=== PATIENT | male | born 1950 | race Caucasian/White ===

== ENCOUNTER → 2021-04-27 | Outpatient (CLI) | payer MEDICARE, OTHER, SELFPAY | END | disposition home or self-care (01) | PROVIDERS: Visit Provider Urology | DX: R31.21 Asymptomatic microscopic hematuria (principal) | CPT/HCPCS: 87077; 87086; 87088; 87186 ==

== ENCOUNTER 2021-05-22 09:42 | Day surgery (SDC) | payer MEDICARE, OTHER, SELFPAY ==
--- NOTE | 2021-05-20 15:57 | EKG12_ITS ---
Test Reason : PRE-OP Blood Pressure : / mmHG Vent. Rate : 061 BPM Atrial Rate : 061 BPM P-R Int : 172 ms QRS Dur : 098 ms QT Int : 440 ms P-R-T Axes : 019 -14 018 degrees QTc Int : 442 ms Normal sinus rhythm Normal ECG Confirmed by MAYRA VILLAREAL, JEREL ([id number]), graphic editor ROSHNI VEGA ([id number]) on 05/21/2021 12:20:40 PM Referred By: Agustín Nieto Confirmed By:JEREL NUNEZ MD
[2021-05-20 17:17] LABS: Hematocrit 42.2 % (40-54); Hemoglobin 13.8 g/dL (13.0-16.5); Mean Corp Hgb Conc 32.7 g/dL (32-36); Mean Corpuscular Hgb 31.4 pg (27.0-32.0); Mean Corpuscular Volume 95.9 fL (80-94); Mean Platelet Vol. 9.9 fl (6.2-12.0); Platelet Count 164 K/mm3 (150-450); RBC Distribution Width CV 12.6 % (11.6-14.6); RBC Distribution Width SD 45.5 fl (35.1-43.9); White Blood Count 4.8 K/mm3 (4.4-11.0)
[2021-05-20 17:37] LABS: Anion Gap 7 (5-15); BUN 22 mg/dL (7-18); BUN/Creat Ratio 16.9 RATIO (10-20); Chloride 108 mmol/L (98-107); EST Glomerular Filtration Rate 58 mL/min (>60); Est Glom Filt Rate - Afr Amer 70 mL/min (>60); Glucose 86 mg/dL (74-106); Potassium 4.2 mmol/L (3.5-5.1); Sodium Level 145 mmol/L (136-145)
[2021-05-22] VITALS (12 sets, daily range): BP systolic 101–123; BP diastolic 61–87; PULSE 50–83; RESP 16–18; TEMP 36–36.7; O2SAT 94–100; BMI 30.2; BMI 30.3
[2021-05-22] MEDS: Lactated Ringers 1,000 ML 15 ML IV ×2 (10:34→13:30)
--- NOTE | 2021-05-22 11:55 | PROS_PTH ---
PATIENT: ALEXANDRIA KRAFT LOC: [facility] [place] U#:[id number] AGE/SX: 71/M ROOM: RE05/22/[address]: Dr. Agustín Nieto MD : 1950 BED: DIS: 05/23/2021 SPEC #: [id number] RECD: 05/22/21 14:06 STATUS: MALI HEIN #: [id number] LENORA: 05/22/21 11:[address]: Agustín Nieto DEPT: SURGICAL PATHOLOGY RECD BY: Brigette Henry ENTERED: 05/22/21 14:15 SP TYPE: TURP OTHR DR: Dr. Krishna Pena MD Tissues: Prostate, NOS Procedures: Surgery Specimen Level IV HEADER OPERATION: Cysto, TUR prostate, Olymp[employer] PRE-OP DIAGNOSIS: Urinary retention, BPH TISSUE SUBMITTED: Prostate tissue MICROSCOPIC DIAGNOSIS Prostate, transurethral resection: Benign nodular hyperplasia, glandular and stromal types. Chronic inflammation. AM:angela 05/25/2021 MICROSCOPIC DESCRIPTION Slides are reviewed. GROSS DESCRIPTION Received is one container labeled with the patient's name and designated prostate tissue. The specimen consists of multiple irregular fragments of pink-samson, rubbery, soft tissue that in aggregate weigh 3.4 gm and measure in aggregate 7 x 5 x 0.4 cm. The entire specimen is submitted in four cassettes. / AM:angela 05/22/21 TC:3 CPT: 21671
--- NOTE | 2021-05-22 13:18 | PCM.HP.STD ---
HPI - General HPI Narrative ALEXANDRIA KRAFT, is a 71 M who presents for a TURP, has bph with incomplete emptying PFSH Medical History (Updated 05/18/21 @ 09:37 by Rosibel Jara) Cardiology follow-up encounter CPAP (continuous positive airway pressure) dependence High cholesterol History of echocardiogram History of pacemaker Hypertension Non-smoker Prostate disease Sleep apnea Home Medications metoprolol tartrate 50 mg PO BID 05/15/21 [History Last Taken 05/22/21] simvastatin 20 mg PO DAILY 05/15/21 [History Last Taken Unknown] verapamil 120 mg PO BID 05/15/21 [History Last Taken 05/22/21] sulfamethoxazole-trimethoprim [Bactrim DS] 1 tab PO BID #10 tab 05/22/21 [Rx Last Taken Unknown] Allergy/AdvReac Type Severity Reaction Status Date / Time No Known Allergies Allergy Verified 05/22/21 10:11 Surgical History (Updated 05/18/21 @ 09:37 by Rosibel Jara) History of automatic internal cardiac defibrillator (AICD) History of cardiac catheterization Social History Smoking Status: Never smoker Vital Signs Vital Signs Vital Signs: 05/22/21 10:13 Temperature 96.9 F L Temperature Source Temporal Pulse Rate 50 L Respiratory Rate 18 Respiratory Pattern Normal Blood Pressure 123/76 H Blood Pressure Mean 91 Blood Pressure Source Monitor Blood Pressure Position Semi-Fowlers Blood Pressure Location Left Arm Pulse Ox 100 Oxygen Delivery Method Room Air Weight Weight: 105.5 kg Body Mass Index (BMI) 30.2 Results Lab / Micro Data Result Diagrams: 05/20/21 15:43 05/20/21 15:43
--- NOTE | 2021-05-22 13:18 | PCM.DC ---
Discharge Instructions Diet Discharge Diet: No restrictions Activity Discharge Activity: Return to Normal Activity and May Not Drive (while taking narcotic pain medications.) Dressing / Incision Call your doctor if you observe: Fever of 101 or Higher Follow Up Care Please Follow Up With: Agustín Nieto MD When: Call [phone] for an appointment Test Results: Test results from this visit will be discussed in further detail at your follow-up appointment, if applicable. Discharge Plan Admission Primary Reason for Your Visit: turp Attending Provider: Agustín Nieto Primary Care Provider: Krishna Pena Instructions Patient Instructions: [facility] Discharge Orders/Prescriptions Prescriptions: New sulfamethoxazole-trimethoprim [Bactrim DS] 800-160 mg tablet 1 tab PO BID Qty: 10 RF: 0 Continued verapamil 180 mg tablet extended release 120 mg PO BID RF: 0 simvastatin 20 mg tablet 20 mg PO DAILY RF: 0 metoprolol tartrate 50 mg tablet 50 mg PO BID RF: 0 Discontinued tamsulosin 0.4 mg capsule 0.4 mg PO DAILY RF: 0 dutasteride 0.5 mg capsule 0.5 mg PO DAILY RF: 0 Other Ambulatory Orders: 12 Lead EKG (Routine) Timeframe: [id number] Location: None Selected Ordered By: Dr. Paresh Serrano Referrals / Follow Up: Krishna Pena MD [Primary Care Provider] - Agustín Nieto MD [STAFF PHYSICIAN] - Disposition Disposition (needs filled in before D/C Order can be placed): Home, Self Care
--- NOTE | 2021-05-22 13:19 | OP.PCM_ITS ---
Report of Operation Date of Procedure: 05/22/21 Pre-Operative Diagnosis: BPH with obstruction and incomplete bladder emptying Post-Operative Diagnosis: Same Surgery/Procedure Performed:: Transurethral resection of the prostate Description of Surgical Findings:: 71-year-old male was taken back to the operating room after smooth induction of general anesthesia he was placed in dorsolithotomy position. Penis and testicles were prepped and draped in usual sterile fashion went in the bladder with a 24 Brazilian noncontinuous flow resectoscope he had obstructed but short length prostate had a distended and we can look in bladder with incomplete emptying I then switched over to the large loop and started with the resection of the prostate, resected on the floor of the prostate back to the bladder neck resected the right lobe of the prostate resect the left lobe the prostate down to the capsule and then very carefully resected apical apical tissue. Once all the tissue was resected I did a flow test had a nice wide open flow sphincter looked intact cauterized the prostate for hemostasis removed all the chips of the bladder the left and right ureter orifice were not injured I then put a 22 Brazilian catheter into the bladder and co ntinuous irrigation and the patient acetic was reversed taken back to PACU in good condition he will have the catheter removed tomorrow for voiding trial. Surgeon: priscila Type of Anesthesia: General Drains: 22 fr Admit VTE Documentation VTE Present on Admission: No VTE Mechan Device Prophylaxis: SCD's VTE Pharm Prophylaxis ordered?: No
[2021-05-22] MEDS: Smz/Tmp Ds Tablet 1 TABLET PO (16:37)
[2021-05-22] MEDS: Metoprolol Tartrate 50 MG Tablet PO (21:50)
[2021-05-22] MEDS: Verapamil SR 240 MG Tablet 120 MG PO (22:29)
[2021-05-23 02:29] VITALS: BP 103/58; PULSE 67; RESP 18; TEMP 36.6; O2SAT 95
[2021-05-23 02:38] VITALS: BMI 30.3
[2021-05-23 05:28] VITALS: BMI 30.3
[2021-05-23 06:00] VITALS: BP 95/64; PULSE 70; RESP 18; TEMP 36.7; O2SAT 95
[2021-05-23 09:04] VITALS: BP 106/57; PULSE 68; RESP 18; TEMP 36.6; O2SAT 97
[2021-05-23 09:28] VITALS: BMI 30.3
--- NOTE | 2021-05-23 09:36 | NURSING ---
Bactrim not on the floor 2nd call to pharmacy for 0800 medication.
[2021-05-23] MEDS: Verapamil SR 240 MG Tablet 120 MG PO (11:02)
[2021-05-23] MEDS: Smz/Tmp Ds Tablet 1 TABLET PO (11:02)
[2021-05-23 11:07] VITALS: PULSE 68
[2021-05-23] MEDS: Atorvastatin Calcium 10 MG Tablet PO (11:07)
[2021-05-23] MEDS: Metoprolol Tartrate 50 MG Tablet PO (11:07)
[2021-05-23 11:25] VITALS: BP 106/57; PULSE 68; RESP 18; TEMP 36.6; O2SAT 97
== END 2021-05-23 12:11 | disposition home or self-care (01) ==
LOC: SDC 09:45 → AC 09:47 → MS3 05-23 11:32
PROVIDERS: Anesthesiology; PCP Family Medicine; Referring Provider Urology; Visit Provider Urology
PROC: (CPT 52601; principal; 2021-05-22 11:45)
DX: N40.1 Benign prostatic hyperplasia with lower urinary tract symptoms (principal); N13.8 Other obstructive and reflux uropathy; R39.14 Feeling of incomplete bladder emptying; R35.1 Nocturia; I10 Essential (primary) hypertension; E78.00 Pure hypercholesterolemia, unspecified; G47.30 Sleep apnea, unspecified; Z95.0 Presence of cardiac pacemaker; Z79.82 Long term (current) use of aspirin; Z79.899 Other long term (current) drug therapy
CPT/HCPCS: 00914; 52601; 36415; 80048; 85027; 88305; 93005; J7120; J2405